=== PATIENT | female | born 1960 | race Caucasian/White ===

== ENCOUNTER 2021-01-21 07:54 | Day surgery (SDC) | payer OTHER ==
[2021-01-17 15:16] VITALS: BMI 27.4
[2021-01-21] MEDS ORDERED: oxyCODONE HCL 5 MG TABLET PO PRN (09:22)
[2021-01-21] MEDS ORDERED: ONDANSETRON 4 MG/2 ML VIAL IVPUSH PRN (09:22)
[2021-01-21] MEDS ORDERED: LACTATED RINGERS SOLUTION 1,000 ML IV SCH (09:30)
[2021-01-21] MEDS ORDERED: PROPOFOL 20 ML ONE (09:42)
[2021-01-21] MEDS ORDERED: MIDAZOLAM HCL 2 MG/2 ML SINGLE DOSE VIAL ONE (09:42)
[2021-01-21] MEDS ORDERED: LIDOCAINE HCL/PF 2% SDV 5ML VIAL ONE (09:42)
[2021-01-21] MEDS ORDERED: EPINEPHrine 1:1,000 1 MG/1 ML - 30ML VIAL (INJECTION) ONE (09:44)
[2021-01-21] MEDS ORDERED: BUPIVACAINE HCL/PF 2.5 MG/ML - 30 ML VIAL IJ ONE (09:44)
[2021-01-21] MEDS ORDERED: EPINEPHrine/PF 1 MG/1 ML (1:1,000) AMPULE ONE (09:45)
[2021-01-21] MEDS ORDERED: methylPREDNISolone ACET (DEPO) 40 MG/1 ML VIAL ONE (10:07)
[2021-01-21] MEDS ORDERED: LIDOCAINE HCL 1%, 10 MG/ML (20ML VIAL) ONE (10:07)
[2021-01-21] MEDS ORDERED: DEXAMETHASONE SOD PHOSPHATE 4 MG/1 ML VIAL ONE (10:09)
[2021-01-21] MEDS ORDERED: KETOROLAC TROMETHAMINE 30 MG/1 ML VIAL ONE (10:24)
[2021-01-21] MEDS ORDERED: DESFLURANE GAS 240 ML BOTTLE IH ONE (10:30)
[2021-01-21] MEDS ORDERED: BUPIVACAINE HCL/PF 0.25% (2.5MG/ML) 10 ML VIAL IJ ONE (10:37)
[2021-01-21 11:09] VITALS: TEMP 97.5
[2021-01-21 12:46] VITALS: BP 119/63; PULSE 57
[2021-01-21] MEDS ORDERED: ACETAMINOPHEN 1000 MG/100 ML VIAL (NON FORMULARY) IVPB ONE (13:14)
== END 2021-01-21 13:05 | disposition home or self-care (01) ==
LOC: FASU 07:54
PROVIDERS: ATTEND Orthopaedic Surgery
PROC: 0SBD4ZZ Excision of Left Knee Joint, Percutaneous Endoscopic Approach (ICD-10-PCS; principal; 2021-01-21 10:15)
DX: S83.242A Other tear of medial meniscus, current injury, left knee, initial encounter (principal); S83.282A Other tear of lateral meniscus, current injury, left knee, initial encounter; M65.862 Other synovitis and tenosynovitis, left lower leg; S83.8X2A Sprain of other specified parts of left knee, initial encounter; X58.XXXA Exposure to other specified factors, initial encounter; Y92.9 Unspecified place or not applicable; Y93.9 Activity, unspecified
CPT/HCPCS: 88304-TC; 94760

== ENCOUNTER 2021-08-29 06:13 | Day surgery (SDC) | payer SELFPAY ==
[2021-08-23 14:22] VITALS: BMI 28.0
[2021-08-29] MEDS ORDERED: PROPOFOL 20 ML ONE ×2 (07:43)
[2021-08-29] MEDS ORDERED: SUCCINYLCHOLINE CHLORIDE 200 MG/10 ML SYRINGE ONE (07:43)
[2021-08-29] MEDS ORDERED: MIDAZOLAM HCL 2 MG/2 ML SINGLE DOSE VIAL ONE (07:43)
[2021-08-29] MEDS ORDERED: DEXAMETHASONE SOD PHOSPHATE 4 MG/1 ML VIAL ONE (07:51)
[2021-08-29] MEDS ORDERED: LIDOCAINE HCL/PF 2% SDV 5ML VIAL ONE (07:51)
[2021-08-29] MEDS ORDERED: ONDANSETRON 4 MG/2 ML VIAL ONE (07:51)
[2021-08-29] MEDS ORDERED: BUPIVACAINE HCL/PF 2.5 MG/ML - 30 ML VIAL IJ ONE (08:33)
[2021-08-29] MEDS ORDERED: LIDOCAINE 1%/EPI 1:100000 (20 ML MULTI DOSE VIAL) ONE (08:33)
[2021-08-29] MEDS ORDERED: ceFAZolin SODIUM 1 GM VIAL ONE ×2 (09:00→09:23)
[2021-08-29] MEDS ORDERED: GENTAMICIN SO4 80 MG/2 ML VIAL ONE (09:23)
[2021-08-29] MEDS ORDERED: DESFLURANE GAS 240 ML BOTTLE IH ONE (09:45)
[2021-08-29] MEDS ORDERED: ACETAMINOPHEN 325 MG TABLET (FP) PO PRN (10:51)
[2021-08-29] MEDS ORDERED: ONDANSETRON 4 MG/2 ML VIAL IVPUSH PRN (10:51)
[2021-08-29] MEDS ORDERED: oxyCODONE HCL 5 MG TABLET PO PRN (10:51)
[2021-08-29] MEDS ORDERED: LACTATED RINGERS SOLUTION 1,000 ML IV SCH (11:00)
[2021-08-29 12:21] VITALS: BP 124/67; PULSE 85; TEMP 98.6
== END 2021-08-29 12:25 | disposition home or self-care (01) ==
LOC: FASU 06:13
PROVIDERS: ATTEND Surgery
CPT/HCPCS: 88300-TC; 94760

== ENCOUNTER 2024-03-29 19:49 | Emergency (ER) | payer OTHER ==
[2024-03-29 19:56] VITALS: BP 145/82; PULSE 96; RESP 18; TEMP 98.3; BMI 28.5
== END 2024-03-29 20:15 | disposition home or self-care (01) ==
LOC: FER 19:49
DX: S00.03XA Contusion of scalp, initial encounter (principal); W22.8XXA Striking against or struck by other objects, initial encounter
CPT/HCPCS: 99282-25